=== PATIENT | female | born 1980 | race American Indian/Alaskan Native ===

== ENCOUNTER 2018-12-14 06:18 | Day surgery (SDC) | payer OTHER | END 2018-12-14 06:19 | disposition home or self-care (01) | LOC: GIO 06:18 | DX: K92.2 Gastrointestinal hemorrhage, unspecified (principal); R10.9 Unspecified abdominal pain; K52.9 Noninfective gastroenteritis and colitis, unspecified; Z53.8 Procedure and treatment not carried out for other reasons; Z87.891 Personal history of nicotine dependence ==

== ENCOUNTER 2018-12-21 08:35 | Day surgery (SDC) | payer OTHER ==
[2018-12-21] MEDS ORDERED: NACL 0.9% 1000 ML 1,000 ML IV SCH (09:00)
[2018-12-21] MEDS ORDERED: DIPRIVAN 10 MG/ML IV ONE ×2 (09:58)
--- NOTE | 2018-12-21 10:25 | Procedure Note ---
Date of procedure: 12/21/18 Pre-op diagnosis: Gastrointestinal Bleeding Post-op diagnosis: other (Minor,Internal Hemorrhoid (possible cause of the GI Bleeding but not significant enough for banding)/Minor, Diverticular Disease) Procedure: Colonoscopy Anesthesia: MAC Surgeon: TIFFANY FLORES Estimated blood loss: minimal Pathology: none Specimen disposition: to lab Condition: stable Disposition: same day (Encourage patient to take hemorrhoidal medication and avoid aspirin and NSAID for 5 days. Follow up in 1 to 2 weeks ([phone]).)
--- NOTE | 2018-12-21 10:41 | Anesthesia Consultation ---
Anesthesia Consult and Med Hx Date of service: 12/21/18 - Airway Anesthetic Teeth Evaluation: Good ROM Head & Neck: Adequate Mental/Hyoid Distance: Adequate Mallampati Class: Class II - Pulmonary Exam CTA: Yes - Cardiac Exam Cardiac Exam: RRR - Pre-Operative Health Status ASA Pre-Surgery Classification: ASA2 Proposed Anesthetic Plan: MAC - Other Systems Hx Obesity: Yes
--- NOTE | 2018-12-21 10:41 | Anesthesia Day of Surgery ---
Anesthesia Day of Surgery - Day of Surgery Patient Examined: Yes Patient H&P Reviewed: Yes Patient is NPO: Yes
--- NOTE | 2018-12-21 10:52 | Operative Report ---
INDICATIONS: This is a 38-year-old -[place] female who had been complaining of some GI bleeding. Colonoscopy was done to assess for the bleeding. DESCRIPTION OF PROCEDURE: The procedure was done after getting informed consent with MAC anesthesia. Initial rectal exam was unremarkable. Instrument was passed through the rectum onto the cecum, which was identified with the ileocecal valve and the appendiceal orifice. Visualization was [id number]. Cecum, ascending colon showed normal mucosa. There were a few scattered diverticula noted in the transverse colon and in the proximal left colon and the remaining part of the colon showed normal mucosa. There was no evidence of any polyps or colitis in the rectum. Showed some minor internal hemorrhoids, which may have been the cause of the bleeding, but not significant enough for banding. No colon polyps were noted. There was no biopsy done and no bleeding associated with the procedure. No complications associated with the procedure. ASSESSMENT: 1. History of gastrointestinal bleeding; few minor diverticula noted; minor internal hemorrhoids, which may have been the cause of the bleeding, but not significant enough for banding. No colon polyps noted. 2. Treat the patient with hemorrhoidal medication. Have the patient follow up in the office in 1-2 weeks' time. Resume home medications. Avoid aspirin and aspirin-related products for the next 5 days. The patient's procedure was done with RN, Sandee Dubon being in the room through the entirety of the procedure. JOB# [id number] MERCEDES/JIM
[2018-12-21 10:59] VITALS: BP 146/77
== END 2018-12-21 08:36 | disposition home or self-care (01) ==
LOC: GIO 08:35
DX: K57.30 Diverticulosis of large intestine without perforation or abscess without bleeding (principal); K64.8 Other hemorrhoids; E66.9 Obesity, unspecified; Z68.43 Body mass index [BMI] 50.0-59.9, adult; Z87.891 Personal history of nicotine dependence; Z79.899 Other long term (current) drug therapy
CPT/HCPCS: 45378; 81025; J2704; J7030